=== PATIENT | male | born 2005 | race Caucasian/White ===

== ENCOUNTER 2023-04-17 06:55 | Emergency (ER) | payer BC, SELFPAY ==
[2023-04-17 06:59] VITALS: BP 133/92
--- NOTE | 2023-04-17 07:22 | ED.GENMED ---
History of Present Illness
General
Chief Complaint: Cold/Flu/URI Symptoms
Time Seen by Provider: 04/17/23 07:11
Travel History
Have you had any contact with someone who has COVID-19?: No
Do you have any symptoms of coronavirus? Fever > 100 degrees, chills, cough, shortness of breath, sore throat, loss of taste or smell, muscle aches, or headache?: Yes
Symptoms:: sore throat
History of Present Illness
History of Present Illness:
17-year-old male w/ hx of Type I IDDM presents to the emergency department for evaluation of sore throat and dry cough over the past 3 days. Throat symptoms have worsened to the point that he feels as though he cannot talk. Denies any dysphagia or
choking. Denies any polyuria or polydipsia, reports that his sugars have been within normal range. Denies any chest pain or shortness of breath.
Review of Systems
Review of Systems
Allergies reviewed?: Yes
All Other Systems: ROS reviewed and negative except as documented in HPI and ROS
Phy Exam
Physical Exam
Physical Exam:
GEN: Well appearing, NAD, WDWN
HEENT: Oral mucosa moist, no tonsillar hypertrophy or exudates, moderate oropharyngeal erythema/edema, no exudates; uvula midline; no scleral icterus; + bilateral anterior cervical chain adenopathy
Cardiac: Regular rate
Lung: No respiratory distress, no tachypnea
MSK: No gross deformity or injuries
Skin: Good color, no pallor or jaundice, no rashes
Neuro: AO x3, moves all extremities freely
Psych: Calm, cooperative
Course
Orders/Labs/Results
Orders:
Orders
04/17/23 07:04
COVID-19 Antigen Urgent
Source: Nasal Swab
INF RAPID [Influenza A+B Rapid Molecular] Urgent
CEZAR Source: Nasal Swab
Specimen Description:
04/17/23 07:22
Dexamethasone Pf [Decadron] 10 mg PO NOW STA
Vital Signs
Initial and Last Documented VS:
Initial Vital Signs
Temp Pulse Resp BP Pulse Ox
99.2 F 91 18 133/92 99
04/17/23 06:59 04/17/23 06:59 04/17/23 06:59 04/17/23 06:59 04/17/23 06:59
Last Documented Vital Signs
Temp Pulse Resp BP Pulse Ox
99.2 F 91 16 133/73 97
04/17/23 06:59 04/17/23 06:59 04/17/23 07:57 04/17/23 07:57 04/17/23 07:57
MDM/Problems Addressed
MDM/Problems Addressed:
Flu B positive. Discussed supportive care, single dose decadron given for supportive care of pharyngitis, advised pt to monitor glucose closely
*Critical Care Note
Total Time (30-74mins, 75-104mins- exclusive of procedures): Not Applicable
ED Attending Note
-
Portions of this chart may have been created with voice recognition software.� Occasional wrong word or��sound alike� substitutions may have occurred due to the inherent limitations of voice recognition software.
Discharge Plan
Departure
Patient Disposition: Home (Routine Discharge)
Date of Disposition: 04/17/23
Time of Disposition: :24
Patient with high blood pressure during this ER visit?: No
Discharge Problem:
Acute viral pharyngitis, Influenza B
Instructions: Sore Throat, Adult (DC)
Prescriptions:
No Action
insulin aspart U-100 [Novolog FlexPen U-100 Insulin] 100 unit/mL (3 mL) Insulin Pen
1 sliding scale dose SC DIRECTED
Activity Restrictions/Additional Instructions:
Please monitor your blood sugar closely, as the steroids typically will cause it to rise
Interventions
Interventions:
*Risk Screen - Suicide Last Done: 04/17/23 07:58
*General Assessment Last Done: 04/17/23 07:28
*Neglect/Abuse Screening Last Done: 04/17/23 07:58
ED- Fall Risk Assessment Last Done: 04/17/23 07:58
*ED COVID-19 Vaccine History Last Done: 04/17/23 06:59
*Nursing Disposition Last Done: 04/17/23 07:57
ED- Pulmonary Assessment Last Done: 04/17/23 07:28
Discharge Date and Time
Discharge Date/Time: 04/17/23 07:59
[2023-04-17] MEDS: DECADRON 10 MG PO (07:32)
[2023-04-17 07:57] VITALS: BP 133/73
[2023-04-17 08:01] LABS: COVID-19 Antigen Negative (Negative)
== END 2023-04-17 07:59 | disposition home or self-care (01) ==
LOC: EMR 06:55
PROVIDERS: EMERGENCY PHYSICIAN Emergency Medicine
DX: J10.1 Influenza due to other identified influenza virus with other respiratory manifestations (principal); J02.8 Acute pharyngitis due to other specified organisms; E10.9 Type 1 diabetes mellitus without complications; B97.89 Other viral agents as the cause of diseases classified elsewhere; Z11.52 Encounter for screening for COVID-19
CPT/HCPCS: 99283; 87502; 87811